=== PATIENT | male | born 1965 | race Caucasian/White ===

== ENCOUNTER → 2018-03-22 | Outpatient (CLI) | payer OTHER ==
[~2018-03-22] MED LIST: LEVSOD150 PO; METO50 PO; TRIHYD253A PO
[2018-03-22 13:23] LABS: Stool Occult Bld Immuno 1 Negative (NEGATIVE)
== END ==
LOC: LAB SHORT 10:30 → LAB EV 10:30
PROVIDERS: Nurse Practitioner Family
DX: Z12.11 Encounter for screening for malignant neoplasm of colon (principal)
CPT/HCPCS: G0328

== ENCOUNTER 2019-08-17 18:06 | Inpatient (IN) | payer OTHER ==
[~2019-08-17] VITALS: Ht 167.6 cm; Wt 84.4 kg
[~2019-08-17 18:06] MED LIST changes: -ACET325 PO; -ASPI325EC PO; -AZIT250 PO; -Amlodipine Besy10 MG PO; -CEFU500T30 PO; -COMBIVENT RESPIM4 GM INH; -DELTASONE20 MG PO; -LOSARTAN-HCTZ1 EAC1 PO; -POTA10T PO
[2019-08-17] MEDS ORDERED: POTA10T PO ×2 (19:42)
[2019-08-17] MEDS ORDERED: Amlodipine Besy10 MG PO ×2 (19:42)
[2019-08-17] MEDS ORDERED: LOSARTAN-HCTZ1 EAC1 PO ×2 (20:24)
[2019-08-17] MEDS ORDERED: ASPI325EC PO ×2 (20:25)
--- NOTE | 2019-08-17 21:30 | NUR ---
PCU ADMIT PT BROUGHT TO PCU RM 04 FROM ER BY HALLIE @ APPROX 211. PT ABLE TO STAND AND INDEPENDENT TRANSFER FROM [facility] TO U BED. PT SPO2 87% ON RA, PLACED ON 3L NC FOR SPO2 >92%. PT VSS. INDEPENDENT IN ROOM. WILL CONTINUE TO MONITOR AND PROVIDE CARE.
--- NOTE | 2019-08-18 06:19 | NUR ---
SHIFT SUMMARY PT ADMITTED TO PCU MEDICAL NO TELE STATUS. A&O X4. VSS. SPO2 > 92% ON 3L NC. LUNG SOUNDS DIM T/O. PT C/O SOB AND OCCASSIONAL DRY COUGH. PT ANTICIPATING DISCHARGE HOME SOON. WILL CONTINUE TO MONITOR AND PROVIDE CARE UNTIL REPORT OFF TO DAY SHIFT RN.
--- NOTE | 2019-08-18 07:37 | NUR ---
O2 TITRATED TO 2L O2 TITRATED TO 2L THIS AM FROM 3L VIA NC. PT SATING AT 94-95% ON 2L VIA NC. WILL CONTINUE TO MONITOR.
--- NOTE | 2019-08-18 13:29 | NUR ---
PT TRANSFERED. PT TRANSFERED AT 1315. PT IN STABLE CONDITION WITH VSS. REPORT GIVEN TO HALLEY COOLEY. NO FURTHER QUESTIONS REQUIRED AT TIME OF REPORT. PT SATING IN THE 90S ON 1L VIA NC. NO OTHER CHANGES PRIOR TO TRANSFER. PT TRANSFERED VIA WHEELCHAIR BY THIS RN. ORIENTED TO NEW ROOM.
--- NOTE | 2019-08-18 19:17 | NUR ---
PT WALKED WITH O2 TANK TO [place] THIS [place] WITH S/OTHER. PT STATES DID WELL. 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 JUST SOB NOW. STATES IMPROVING OVER LAST COUPLE DAYS. NO OTHER CONCERNS AT THIS TIME. BED IN LOW POSITION, CALL LITE IN REACH, CALLS APPROP
--- NOTE | 2019-08-19 04:39 | NUR ---
SHIFT SUMMARY: PT IS ALERT AND ORIENTED. PT IS CALM AND COOPERATIVE WITH CARE. PT CALLS APPROPRIATELY. PT IS INDEPENDENT IN THE ROOM. PT REPORTS SOB UPON EXERTION, SATS > 90% ON ROOM AIR. PT DENIES PAIN, NAUSEA, AND VOMITING. PT SLEPT MUCH OF THE NIGHT. POSSIBLE DC TODAY. NO ACUTE CHANGES OR COMPLICATIONS THIS SHIFT. WILL CONTINUE TO MONITOR.
[2019-08-19 05:46] LABS: Anion Gap 5 mmol/L (6-16); Blood Urea Nitrogen 17 mg/dL (8-24); Bun/Creatinine Ratio 21.6 (12.0-20.0); CO2, Blood 27 mmol/L (21-32); Calcium, Blood 8.5 mg/dL (8.5-10.1); Chloride, Blood 110 mmol/L (98-108); Creatinine, Blood 0.79 mg/dL (0.60-1.20); Glomerular Filtration Rate >60 (60-); Glucose, Blood 97 mg/dL (70-99); Potassium, Blood 3.7 mmol/L (3.5-5.5); Sodium, Blood 142 mmol/L (136-145)
[2019-08-19 05:59] LABS: BASOPHILS ABSOLUTE AUTO 0.07 K/mm3 (0.00-0.23); BASOPHILS PERCENT AUTO 1 % (0-2); EOSINOPHILS ABSOLUTE AUTO 0.26 K/mm3 (0.00-0.68); EOSINOPHILS PERCENT AUTO 2 % (0-6); Hematocrit 36.3 % (37.0-53.0); Hemoglobin 11.9 g/dL (13.5-17.5); IMMATURE GRAN ABSOLUTE AUTO 0.57 K/mm3 (0.00-0.10); IMMATURE GRAN PERCENT AUTO 5 % (0-1); LYMPHOCYTES ABSOLUTE AUTO 1.88 K/mm3 (0.84-5.20); LYMPHOCYTES PERCENT AUTO 15 % (21-46); MONOCYTES ABSOLUTE AUTO 0.98 K/mm3 (0.16-1.47); MONOCYTES PERCENT AUTO 8 % (4-13); Mean Corpuscular HGB 28.7 pg (26.0-34.0); Mean Corpuscular Volume 88 fL (80-100); NEUTROPHILS ABSOLUTE AUTO 8.93 K/mm3 (1.96-9.15); NEUTROPHILS PERCENT AUTO 70 % (41-73); Platelet Count 443 K/mm3 (150-400); RDW Coefficient Variation 12.4 % (11.7-14.2); Red Blood Cell Count 4.14 M/mm3 (4.30-5.90); White Blood Cell Count 12.69 K/mm3 (4.00-11.30)
[2019-08-19 06:02] LABS: Mean Corpuscular HGB Conc 32.8 g/dL (31.5-36.5)
[2019-08-19] MEDS ORDERED: ACET325 PO ×2 (12:41)
[2019-08-19] MEDS ORDERED: AZIT250 PO ×2 (12:42)
[2019-08-19] MEDS ORDERED: CEFU500T30 PO ×2 (12:43)
[2019-08-19] MEDS ORDERED: COMBIVENT RESPIM4 GM INH ×2 (12:44)
[2019-08-19] MEDS ORDERED: DELTASONE20 MG PO ×2 (12:45)
--- NOTE | 2019-08-19 13:43 | NUR ---
DISCHARGE SUMMARY PT DISCHARGED TO HOME. PT LEFT ROOM VIA WHEELCHAIR AND ESCORT PRIOR TO THIS NOTE. 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 PT AGREES. IV REMOVED AND BELONGINGS RETURNED.
== END 2019-08-19 13:25 | disposition home or self-care (01) | DRG 871 ==
LOC: ER 18:06 → PCU 18:07 → ER 19:59 → MEDS 21:15 → PCU 21:23 → MEDS 08-18 12:02 → PCU 08-18 12:02 → MEDS 08-18 13:20 → ENPENDDIS 08-19 12:34 → MEDS 08-19 13:25
PROVIDERS: Internal Medicine; ADMIT Hospitalist
DX: A41.9 Sepsis, unspecified organism (principal); J96.01 Acute respiratory failure with hypoxia; J18.1 Lobar pneumonia, unspecified organism; E03.9 Hypothyroidism, unspecified; I10 Essential (primary) hypertension; R65.20 Severe sepsis without septic shock; R91.8 Other nonspecific abnormal finding of lung field; E04.2 Nontoxic multinodular goiter; Z79.82 Long term (current) use of aspirin; Z79.899 Other long term (current) drug therapy
CPT/HCPCS: 36415; 71046; 71260; 76536; 80048; 83605; 84443; 85025; 90686; 94760; 94761; 96372; 99285-25; G0378; J0696; J1650; J7512; Q9967

== ENCOUNTER → 2019-08-17 | Outpatient (CLI) | payer OTHER ==
[~2019-08-17] MED LIST changes: +ACET325 PO; +ASPI325EC PO; +AZIT250 PO; +Amlodipine Besy10 MG PO; +CEFU500T30 PO; +COMBIVENT RESPIM4 GM INH; +DELTASONE20 MG PO; +EUTHYROX150 MCG PO; -LEVSOD150 PO; +LOSARTAN-HCTZ1 EAC1 PO; +METO100ER PO; -METO50 PO; +POTA10T PO
[2019-08-17 17:16] LABS: Alanine Aminotransfer (ALT/SGP 33 U/L (12-78); Albumin, Blood 3.2 g/dL (3.4-5.0); Albumin/Globulin Ratio 0.6 (0.8-1.8); Alk Phos 94 U/L (40-126); Anion Gap 9 mmol/L (6-16); Aspartate Aminotrans (AST/SGOT 31 U/L (12-37); Bilirubin, Total 1.4 mg/dL (0.1-1.0); Blood Urea Nitrogen 17 mg/dL (8-24); Bun/Creatinine Ratio 19.1 (12.0-20.0); CO2, Blood 27 mmol/L (21-32); Calcium, Blood 9.1 mg/dL (8.5-10.1); Chloride, Blood 101 mmol/L (98-108); Creatinine, Blood 0.89 mg/dL (0.60-1.20); Glomerular Filtration Rate >60 (60-); Glucose, Blood 95 mg/dL (70-99); Potassium, Blood 3.5 mmol/L (3.5-5.5); Sodium, Blood 137 mmol/L (136-145); Total Protein, Blood 8.2 g/dL (6.4-8.2)
[2019-08-17 17:26] LABS: BASOPHILS ABSOLUTE AUTO 0.08 K/mm3 (0.00-0.23); BASOPHILS PERCENT AUTO 0 % (0-2); EOSINOPHILS ABSOLUTE AUTO 0.31 K/mm3 (0.00-0.68); EOSINOPHILS PERCENT AUTO 2 % (0-6); Hematocrit 36.2 % (37.0-53.0); Hemoglobin 13.1 g/dL (13.5-17.5); IMMATURE GRAN PERCENT AUTO 3 % (0-1); LYMPHOCYTES ABSOLUTE AUTO 1.58 K/mm3 (0.84-5.20); LYMPHOCYTES PERCENT AUTO 7 % (21-46); MONOCYTES ABSOLUTE AUTO 1.28 K/mm3 (0.16-1.47); MONOCYTES PERCENT AUTO 6 % (4-13); Mean Corpuscular HGB 31.8 pg (26.0-34.0); Mean Corpuscular HGB Conc 36.2 g/dL (31.5-36.5); Mean Corpuscular Volume 88 fL (80-100); Mean Platelet Volume 9.4 fL (9.1-12.4); NEUTROPHILS PERCENT AUTO 82 % (41-73); NRBC ABSOLUTE 0.02 K/mm3 (0.00-0.02); NRBC Auto 0.1 /100 WBC (0.0-0.2); Platelet Count 538 K/mm3 (150-400); RDW Coefficient Variation 14.5 % (11.7-14.2); RDW Standard Deviation 37.5 fL (35.1-46.3); Red Blood Cell Count 4.12 M/mm3 (4.30-5.90); White Blood Cell Count 21.35 K/mm3 (4.00-11.30)
== END ==
LOC: LAB EV 16:59 → LAB SHORT 16:59
PROVIDERS: Emergency Medicine
DX: R06.00 Dyspnea, unspecified (principal)
CPT/HCPCS: 80053; 85025; 85379; 87040

== ENCOUNTER 2024-09-06 15:50 | Emergency (ER) | payer BC ==
[~2024-09-06] VITALS: Ht 165.1 cm; Wt 87.1 kg
[~2024-09-06 15:50] MED LIST changes: +ACET325 PO; +ASPI325EC PO; +AZIT250 PO; +Amlodipine Besy10 MG PO; +CEFU500T30 PO; +COMBIVENT RESPIM4 GM INH; +DELTASONE20 MG PO; +LOSARTAN-HCTZ1 EAC1 PO; +POTA10T PO
[2024-09-06 16:04] VITALS: BP 154/124
== END 2024-09-06 16:34 | disposition home or self-care (01) ==
LOC: ER 15:50
DX: I48.91 Unspecified atrial fibrillation (principal); I10 Essential (primary) hypertension; E03.9 Hypothyroidism, unspecified; Z79.82 Long term (current) use of aspirin; Z79.52 Long term (current) use of systemic steroids; Z79.899 Other long term (current) drug therapy
CPT/HCPCS: 93005; 93010; 99284-25